=== PATIENT | male | born 1980 | race Caucasian/White ===

== ENCOUNTER 2024-04-19 15:13 | Day surgery (SDC) | payer OTHER ==
[~2024-04-19] VITALS: Ht 182.9 cm; Wt 78.2 kg
--- NOTE | ~2024-04-19 | OR ---
[facility] [address], [place] [address] Draft DATE OF OPERATION: 04/19/2024 SURGEON: Angela Alexander MD PREOPERATIVE DIAGNOSIS: Colon screening. POSTOPERATIVE DIAGNOSIS: Normal colon to cecum. PROCEDURE: Total colonoscopy to cecum. ANESTHESIA: Intravenous sedation fentanyl 150 mcg, Versed 8 mg. INDICATIONS: 44-year-old white man is a patient of MINISTERIO Daniel. He is referred for colon screening. He has no symptoms of bleeding, diarrhea or constipation. No family history of colon cancer. He is admitted at this time to undergo screening colonoscopy. He understands the risk of bleeding, infection, and perforation. FINDINGS: The prep was excellent. Complete colonoscopy was undertaken to the cecum without question. There was no evidence of polyps, diverticular formation, colitis, or cancer. PROCEDURE IN DETAIL: The patient was brought to the endoscopy suite and placed in lateral decubitus position, given intravenous sedation to the point of slurred speech and nystagmus. Digital rectal examination was normal. An Olympus video colonoscope was passed in the rectum and manipulated throughout the colon ultimately intubating the cecum itself. The ileocecal valve and appendiceal orifice were normal. The scope was withdrawn from that point. Examination throughout showed no sign of abnormality specifically no polyps, diverticular formation, colitis, or cancer. Retroflexed view of the rectum was normal. The scope was removed. The patient was taken to the recovery room in good condition. CONCLUDING DIAGNOSIS: Normal colon to cecum. PATIENT NAME: TESSA MENENDEZ OPERATIVE REPORT DATE OF : 76 REPORT #: [id number] PHYSICIAN: ANGELA ALEXANDER MD PCP: MARLIN FARRIS PAC REPORT IS CONFIDENTIAL AND NOT TO BE RELEASED WITHOUT AUTHORIZATION [address] [place] [address] Draft PLAN: Recommend repeat colonoscopy in 10 years, sooner if clinically indicated. He will return to the ongoing care of MINISTERIO Daniel. MD BHAVANI Garrett/JACKELYN /[id number] cc: Marlin Farris PA-C Copies: ~ PATIENT NAME: TESSA MENENDEZ OPERATIVE REPORT DATE OF : 76 REPORT #: [id number] PHYSICIAN: ANGELA ALEXANDER MD PCP: MARLIN FARRIS PAC REPORT IS CONFIDENTIAL AND NOT TO BE RELEASED WITHOUT AUTHORIZATION
[~2024-04-19 15:13] MED LIST: IBLOOD GLUCOSE TEST STRIP 1 EA TEST VI PRN; LACTATED RINGER'S 1,000 ML IV SCH; LIDOCAINE HCL 1% 5 ML SDV INJ ONE; MIDAZOLAM HCL 5 MG/5 ML VIAL IV PRN; fentaNYL citrate 100 MCG/2 ML VIAL IV PRN
[2024-04-19 15:35] VITALS: BP 112/59
[2024-04-19] MEDS ORDERED: BUSPIRONE HCL10 MG PO (15:36)
[2024-04-19] MEDS ORDERED: MIDAZOLAM HCL 5 MG/5 ML VIAL ONE (17:02)
[2024-04-19] MEDS ORDERED: fentaNYL citrate 100 MCG/2 ML VIAL ONE (17:03)
[2024-04-19 18:22] VITALS: BP 105/66
--- NOTE | 2024-04-19 18:24 | NUR ---
04/19/24 182 [address] 1744 PT ARRIVED IN PACU SLEEPY. ABD SOFT. 1750 DR AT BEDSIDE. ALL QUESTIONS ANSWERED. 175 SITTING UP IN BED SIPPING ON JUICE. NO C/O'S. 1800 GETTING DRESSED. 180 DC INSTRUCTIONS GIVEN. LEFT VIA W/C.
== END 2024-04-19 18:07 | disposition home or self-care (01) ==
LOC: OPS 15:13 → DS 15:14 → OPS 18:07
PROVIDERS: ATTEND Surgery
PROC: 0DJD8ZZ Inspection of Lower Intestinal Tract, Via Natural or Artificial Opening Endoscopic (ICD-10-PCS; principal; 2024-04-19 14:00)
DX: Z12.11 Encounter for screening for malignant neoplasm of colon (principal); S62.91XD Unspecified fracture of right hand, subsequent encounter for fracture with routine healing; X58.XXXD Exposure to other specified factors, subsequent encounter; Z72.89 Other problems related to lifestyle; Z79.899 Other long term (current) drug therapy
CPT/HCPCS: 99153; G0500; J2250; J3010; J7121